=== PATIENT | female | born 1985 | race Two or more races ===

== ENCOUNTER 2019-03-13 09:51 | Emergency (ER) | payer BC ==
[~2019-03-13] VITALS: Ht 160 cm; Wt 55.0 kg
[2019-03-13] MEDS ORDERED: KETOROLAC 30MG/ML VIAL IV STA (10:21)
[2019-03-13 11:06] LABS: BASOPHILS % 0.6 % (0.0-2.0); EOSINOPHILS % 0.5 % (0.0-5.0); HEMATOCRIT. 38.1 % (36.0-48.0); HEMOGLOBIN. 13.5 g/dL (12.0-16.0); LYMPHOCYTES % 16.7 % (20.0-50.0); MEAN CORPUSCULAR HEMOGLOBIN 30.2 pg (28.0-32.0); MEAN CORPUSCULAR VOLUME 85.2 fL (81.0-99.0); MEAN PLATELET VOLUME 7.5 fl (7.4-10.4); MONOCYTES % 7.2 % (2.0-8.0); PLATELET 251 x1000/uL (130-400); RED BLOOD CELL COUNT 4.48 mill/uL (4.2-5.4); RED CELL DISTRIBUTION WIDTH 12.8 % (11.6-14.6)
[2019-03-13 11:09] LABS: CHLORIDE 109 mEq/L (98-107)
[2019-03-13 11:19] LABS: PROTHROMBIN TIME 10.1 sec (9.6-11.0)
[2019-03-13 11:38] LABS: CLARITY URINE CLEAR (CLEAR); COLOR URINE YELLOW (YELLOW); KETONES URINE NEGATIVE (NEGATIVE); LEUKOCYTE ESTERASE URINE NEGATIVE (NEGATIVE); NITRITE URINE NEGATIVE (NEGATIVE); OCCULT BLOOD URINE TRACE (NEGATIVE); PH URINE 7.5 (4.5-8.0); PROTEIN URINE NEGATIVE (NEGATIVE); SPECIFIC GRAVITY URINE 1.009 (1.005-1.030); UROBILINOGEN URINE 0.2 E.U./dL (0.2-1.0)
[2019-03-13] MEDS ORDERED: KETOROLAC 15MG/ML VIAL IV ONE (12:00)
[2019-03-13 13:42] VITALS: BP 108/78
== END 2019-03-13 13:47 | disposition home or self-care (01) ==
LOC: ER 10:21
DX: R10.33 Periumbilical pain (principal); E03.9 Hypothyroidism, unspecified; Z97.5 Presence of (intrauterine) contraceptive device
CPT/HCPCS: 36415; 76830; 76856; 80053; 81003; 81025; 83690; 85025; 85610; 96374; 99284; J1885